=== PATIENT | male | born 2000 | race Caucasian/White ===

== ENCOUNTER 2022-12-28 16:47 | Emergency (ER) | payer OTHER, BC ==
[~2022-12-28] VITALS: Ht 182.8 cm; Wt 100.0 kg
--- NOTE | 2022-12-28 17:13 | ED General ---
General Chief Complaint: Facial Problems Stated Complaint: FACIAL INJURY Source of Information: Patient Exam Limitations: No Limitations History of Present Illness Date Seen by Provider: Dec 28, 2022 Time Seen by Provider: 17:05 Initial Comments Patient is a 22-year-old male who presents to the for evaluation for dental injury. Patient was seen at [facility] urgent care today. Had sutures placed in his lower lip. States he had a around 13 stitches placed. Patient reports fracture of his left central incisor and lucency of his right lower central and lateral incisor. Patient went to [facility] dental but did not get evaluated and immediately came to the ED. Mother is wanting a oral maxillofacial surgeon adrian smith. Patient reports some dental pain. Not up-to-date on his tetanus. Denies any vomiting, visual changes, headache, dizziness. No active bleeding. Allergies and Home Medications Allergies Coded Allergies: No Known Drug Allergies (Unverified , 12/28/22) Patient Home Medication List Home Medication List Reviewed: Yes Review of Systems Review of Systems Constitutional: No chills, No diaphoresis, No malaise, No weakness EENTM: other (dental pain); No ear pain, No blurred vision, No double vision Respiratory: No cough, No dyspnea on exertion Cardiovascular: No chest pain Gastrointestinal: No abdominal pain, No diarrhea, No nausea, No vomiting Genitourinary: No decreased output, No discharge Musculoskeletal: No back pain, No joint pain Skin: No change in color, No change in hair/nails All Other Systems Reviewed Negative Unless Noted: Yes Physical Exam Vital Signs Vital Signs - First Documented 12/28/22 16:56 Temp 37.0 Pulse 101 Resp 16 B/P (MAP) 152/79 (103) Pulse Ox 99 Capillary Refill : Height, Weight, BMI Height: '" Weight: lbs. oz. kg; BMI Method: General Appearance: No Apparent Distress, WD/WN Eyes: Bilateral Eye Normal Inspection, Bilateral Eye PERRL, Bilateral Eye EOMI HEENT: PERRL/EOMI, TMs Normal, Normal ENT Inspection, Pharynx Normal, Other (Left central incisor Joyner 3 fracture, mild lucency of right lower central incisor. Sutures to the lower lip) Neck: Full Range of Motion, Normal Inspection, Non Tender, Supple Respiratory: Chest Non Tender, Lungs Clear, Normal Breath Sounds, No Accessory Muscle Use, No Respiratory Distress Cardiovascular: Regular Rate, Rhythm, No Edema, No Gallop, No JVD Gastrointestinal: Normal Bowel Sounds, No Organomegaly, No Pulsatile Mass Back: Normal Inspection, No CVA Tenderness Extremity: Normal Capillary Refill, Normal Inspection, Normal Range of Motion, Non Tender Neurologic/Psychiatric: Alert, Oriented x3, No Motor/Sensory Deficits, Normal Mood/Affect, practicing dermatologist II-XII Norm as Tested Skin: Normal Color, Warm/Dry Progress/Results/Core Measures Suspected Sepsis SIRS Temperature: Pulse: Respiratory Rate: Blood Pressure / Mean: Results/Orders My Orders Orders - STU ANDRADE Ct Maxillofacial Wo (12/28/22 17:02) Dipht/Pertuss(Acell)/Tet Adult (Dipht/Pe (12/28/22 17:30) Promethazine Injection (Promethazine I (12/28/22 17:45) Medications Given in ED Current Medications Medications Dose Ordered Sig/[place] Route Start Time Stop Time Status Last Admin Dose Admin Diphtheria/ Tetanus/Acell Pertussis 0.5 ml ONCE ONCE IM 12/28/22 17:30 12/28/22 17:31 DC 12/28/22 17:44 0.5 ML Vital Signs/I&O 12/28/22 12/28/22 16:56 18:18 Temp 37.0 37.0 Pulse 101 101 Resp 16 16 B/P (MAP) 152/79 (103) 152/79 Pulse Ox 99 99 Capillary Refill : Departure Communication (PCP) Patient with a facial injury today. Patient Was seen at [facility] urgent care had sutures placed in his lower lip. Currently on Keflex and hydrocodone. Attempted to go to [facility] walk-in for dental. Staff stated the patient needed a oral maxillofacial surgeon and mother immediately came to the ED. Contacted [facility] dental. Talk to the dentist. State if there is any oral fractures they will need to be seen by oral maxillofacial surgeon. If imaging negative they can follow-up in the office Saturday. Recommend soft foods and avoid any cold fluids. I did update patient's tetanus. CT scan of the face did not show any acute fracture. Does have a Joyner 3 left central incisor fracture. Patient Do not have the tooth fragment. No obvious lucency. Very minimal lucency of the right lower lateral incisor but appears to be intact. There is no evidence of displaced teeth. Since there is no obvious facial fracture we will have patient follow-up with dentist on Saturday. Has a scheduled appointment at 1 PM. Continue with Keflex and your pain medication. Sutures in place currently. Patient will likely need a root canal. Patient and mother agree with plan of action. Return precaution were discussed such as increased redness or swelling of the lower lips. Discussed wound care. Impression Primary Impression: Tooth fracture Disposition: HOME, SELF-CARE Condition: Stable Departure-Patient Inst. Decision time for Depature: 18:15 Referrals: NO,LOCAL PHYSICIAN (PCP/Family) Primary Care Physician Patient Instructions: Dental Pain ED Add. Discharge Instructions: Follow-up with your dentist on Saturday for further evaluation. Continue with your antibiotics and pain medication. Soft foods avoid any cold fluids All discharge instructions reviewed with patient and/or family. Voiced understanding. STU ANDRADE Dec 28, 2022 17:13
[2022-12-28] MEDS ORDERED: Tetanus/Diphtheria/Pertussis (Acell) ADULT Vaccine 0.5 ML IM ONE (17:30)
[2022-12-28] MEDS ORDERED: PROMETHAZINE INJ 25 MG/ML VIAL IVP ONE (17:45)
--- NOTE | 2022-12-28 17:56 | Diagnostic Imaging Report ---
PROCEDURE: CT maxillofacial without contrast. TECHNIQUE: Multiple contiguous axial images were obtained through the facial bones without the use of intravenous contrast. Auto Exposure Controls were utilized during the CT exam to meet ALARA standards for radiation dose reduction. INDICATION: Facial and dental injury. COMPARISON: No comparison is available. FINDINGS: There is no CT evidence of an acute mandibular or maxillary fracture. There is no identified missing or fractured tooth. There are no findings of blood or fluid level within the paranasal sinuses. The orbital contents are unremarkable. The bony orbit is intact. There is no evidence of a fracture of the zygomatic arches. The pterygoids are normal. There is no TMJ dislocation. The middle ears and the mastoids are clear. Limited assessment of the intracranial contents demonstrates no mass effect or hydrocephalus. The soft tissues of the face demonstrate appropriate symmetry. There is no mass effect on the airway or identified soft tissue hematoma. IMPRESSION: 1. No CT evidence of an acute facial fracture. 2. No missing or fractured teeth are identified. 3. No air-fluid level present within the paranasal sinuses. Dictated by: Dictated on workstation # [id number]
[2022-12-28 18:18] VITALS: BP 152/79
== END 2022-12-28 18:18 | disposition home or self-care (01) ==
LOC: ER 16:50
DX: S02.5XXA Fracture of tooth (traumatic), initial encounter for closed fracture (principal); Z23 Encounter for immunization; X58.XXXA Exposure to other specified factors, initial encounter
CPT/HCPCS: 70486; 90471; 90715